=== PATIENT | female | born 1985 | race Caucasian/White ===

== ENCOUNTER 2016-10-04 21:28 | Emergency (ER) | payer SELFPAY ==
[~2016-10-04] VITALS: Ht 167.6 cm; Wt 87.0 kg
[2016-10-04 21:28] VITALS: Ht 167.6 cm; Wt 87.0 kg
[~2016-10-04 21:28] MED LIST: DICL75TA5 PO; NO ROUTINE MEDS
--- OUTSIDE RECORDS SUMMARY | 2016-10-04 21:32 | XMS REPORT ---
Author Author Sania Cotto Organization eClinicalWorks Address Unknown Phone Unavailable Care Team Providers Care Customer Agent Name Role Phone Sania Cotto CP Unavailable Allergies No Known Allergies Problems Problem Type Condition Code Onset Dates Condition Status Assessment Screening for iron deficiency anemia Z13.0 Active Assessment Screening for thyroid disorder Z13.29 Active Problem Asthma 493.90 Active Problem Allergic rhinitis due to other allergen 477.8 Active Problem Personal history of nicotine dependence Z87.891 Active Problem Personal history of tobacco use, presenting hazards to health V15.82 Active Assessment Overweight (BMI 25.0-29.9) E66.3 Active Problem Tobacco use disorder 305.1 Active Problem Generalized anxiety disorder 300.02 Active Medications Medication Code System Code Instructions Start Date End Date Status Dosage Phentermine HCl [facility] [address]-11 15 MG Orally Once a day Apr 04, 2016 May 04, 2016 1 capsule Procedures Procedure Coding System Code Date COMPREHENSIVE METABOLIC PANEL CPT-4 80306 Apr 04, 2016 T4 FREE CPT-4 38287 Apr 04, 2016 COMPLETE CBC W/AUTO DIFF WBC CPT-4 90118 Apr 04, 2016 T3 FREE CPT-4 27216 Apr 04, 2016 TSH CPT-4 81719 Apr 04, 2016 Results No Known Results Summary Purpose eClinicalWorks Submission
--- OUTSIDE RECORDS SUMMARY | 2016-10-04 21:32 | XMS REPORT ---
Author Author Sania Cotto Organization [employer] Address Unknown Phone Unavailable Care Team Providers Care Chief School Finance Officer Name Role Phone Sania Cotto CP Unavailable Allergies, Adverse Reactions, Alerts Substance Reaction Event Type N.K.D.A. Info Not Available Non Drug Allergy Problems Problem Type Condition Code Onset Dates Condition Status Problem Tobacco use disorder 305.1 Active Problem Generalized anxiety disorder 300.02 Active Problem Allergic rhinitis due to other allergen 477.8 Active Assessment Acute maxillary sinusitis 461.0 Active Problem Personal history of tobacco use, presenting hazards to health V15.82 Active Assessment Allergic rhinitis due to other allergen 477.8 Active Medications Medication Code System Code Instructions Start Date End Date Status Dosage Fluticasone Propionate [facility] [address]-40 50 MCG/ACT Nasally Once a day September 08, 2014 1 spray in each nostril Procedures Procedure Coding System Code Date OFFICE VISIT, EST-LOW COMPLEXITY (15 MIN.) CPT-4 98992 September 08, 2014 Vital Signs Date/Time: September 08, 2014 Height 67.5 in Weight 179.8 lbs Temperature 98.8 F Blood Pressure Diastolic 76 mm Hg Blood Pressure Systolic 114 mm Hg Cardiac Monitoring Heart Rate 84 /min BMI 27.74 Index Respiratory Rate 16 /min Results No Known Results Summary Purpose eClinicalWorks Submission
--- OUTSIDE RECORDS SUMMARY | 2016-10-04 21:33 | XMS REPORT ---
Author Author Sania Cotto [facility] eClinicalWorks Address Unknown Phone Unavailable Care Team Providers Care Student Ministries Director Name Role Phone Sania Cotto CP Unavailable Allergies No Known Allergies Problems Problem Type Condition Code Onset Dates Condition Status Problem Allergic rhinitis due to other allergen 477.8 Active Problem Tobacco use disorder 305.1 Active Problem Asthma 493.90 Active Problem Generalized anxiety disorder 300.02 Active Problem Personal history of tobacco use, presenting hazards to health V15.82 Active Medications No Known Medications Results No Known Results Summary Purpose eClinicalWorks Submission
--- OUTSIDE RECORDS SUMMARY | 2016-10-04 21:33 | XMS REPORT ---
Author Author Sania Cotto Organization [employer] Address Unknown Phone Unavailable Care Team Providers Care Sandal Parts Assembler Name Role Phone Sania Cotto CP Unavailable Allergies, Adverse Reactions, Alerts Substance Reaction Event Type N.K.D.A. 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 [address]-51 108 (90 Base) MCG/ACT Inhalation as directed November 23, 2014 1 to 2 puffs as needed every 6 hours for cough/wheezing/ shortness of breath Procedures Procedure Coding System Code Date OFFICE VISIT, EST-LOW COMPLEXITY (15 MIN.) CPT-4 86526 Jun 22, 2015 Vital Signs Date/Time: Jun 22, 2015 Height 67.5 in Weight 193.75 lbs Temperature 98.3 F Blood Pressure Diastolic 100 mm Hg Blood Pressure Systolic 130 mm Hg Cardiac Monitoring Heart Rate 88 /min BMI 29.89 Index Respiratory Rate 16 /min Results No Known Results Summary Purpose eClinicalWorks Submission
--- OUTSIDE RECORDS SUMMARY | 2016-10-04 21:33 | XMS REPORT ---
Author Author Sania Cotto [facility] eClinicalWorks Address Unknown Phone Unavailable Care Team Providers Care Cell Builder Name Role Phone Sania Cotto CP Unavailable [...]
--- OUTSIDE RECORDS SUMMARY | 2016-10-04 21:33 | XMS REPORT | Continuity of Care Document ---
Author Author [facility] Organization [facility] Address Unknown Phone Unavailable Care Team Providers Care Osteology Teacher Name Role Phone INFECTION, CONTROL Primary Care Physician [phone] Problems Medical Problems Problem Onset Date Status Pharyngitis Unknown Active Pharyngitis Unknown Active Medications Medication Dose Route Sig Days/Qty Instructions Order Date Discontinued Date Status Varenicline Tartrate 0.5 Mg PO DAILY 12/22/10 Active Norgestimate-Ethinyl Estradiol 1 Tab PO DAILY 12/22/10 Active Amoxicillin 500 Mg PO THREE TIMES A DAY For Pharyngitis 10 Days Active Social History Social History Problem Response Recorded Date/Time Smoking Status Current every day smoker 01/31/2014 11:00am Hx Substance Use No 01/31/2014 11:00am Hx Alcohol Use No 01/31/2014 11:00am Hospital Discharge Instructions No hospital discharge instructions. Plan of Care No plan of care. Functional Status Query Response Date Recorded Physical Hygiene Self January 31, 2014 11:00am Disabilities None January 31, 2014 11:00am Devices Used None January 31, 2014 11:00am Dressing Self January 31, 2014 11:00am Ambulation Self January 31, 2014 11:00am Diet Self January 31, 2014 11:00am Mental Status Alert Oriented January 31, 2014 11:00am Disabilities None January 31, 2014 11:00am Devices Used None January 31, 2014 11:00am Physical Hygiene Self January 31, 2014 11:00am Dressing Self January 31, 2014 11:00am Ambulation Self January 31, 2014 11:00am Diet Self January 31, 2014 11:00am Allergies, Adverse Reactions, Alerts Allergen Type Severity Reaction Status Last Updated No Known Allergies Allergy Unknown Active 10/18/09 Immunizations Name Given Type Hx Influenza Vaccination No Historical Hx Pneumococcal Vaccination No Historical Hx Influenza Vaccination No Historical Vital Signs Acute Vital Signs Vital Response Date/Time Temperature (Fahrenheit) 96.6 deg F (96.8 - 99.1) Temperature (Calculated Celsius) 35.95222 degrees C (36.0 - 37.3) Pulse Rate (adult) 77 bpm (60 - 100) Respiratory Rate 18 breaths/min (10 - 20) O2 Sat by Pulse Oximetry 97 % (90 - 100) Blood Pressure 126/75 mm Hg Blood Pressure 126/75 mm Hg Height 5 ft 6 in Weight 160 lb Body Mass Index 25.0 kg/m^2 Results Test Source Date Result Interp. Ref. Range Comments Alanine Aminotransferase (ALT/SGPT) August 28, 2011 12:05pm 20 U/L N 9 -52 Albumin August 28, 2011 12:05pm 4.9 G/DL N 3.5-5.0 Albumin/Globulin Ratio August 28, 2011 12:05pm 1.5 RATIO N 1.1-2.2 Alkaline Phosphatase August 28, 2011 12:05pm 83 U/L N 38-126 Anion Gap August 28, 2011 12:05pm 10 MEQ/L N 5-15 Aspartate Amino Transf (AST/SGOT) August 28, 2011 12:05pm 24 U/L N 14- 36 BUN/Creatinine Ratio August 28, 2011 12:05pm 14 RATIO N 6-26 Basophils # (Auto) August 28, 2011 12:05pm 0.0 T/MM3 N 0-0.2 Basophils (%) (Auto) August 28, 2011 12:05pm 0.2 % N 0-2 Blood Urea Nitrogen August 28, 2011 12:05pm 10.0 MG/DL N 7-17 Calcium Level August 28, 2011 12:05pm 9.3 MG/DL N 8.4-10.2 Calculated Osmolality August 28, 2011 12:05pm 275 MOSM/KG N 261-280 Carbon Dioxide Level August 28, 2011 12:05pm 30 MEQ/L N 22-30 Chloride Level August 28, 2011 12:05pm 104 MEQ/L N 98-107 Creatinine August 28, 2011 12:05pm 0.7 MG/DL N 0.7-1.2 Eosinophils # (Auto) August 28, 2011 12:05pm 0.0 T/MM3 N 0-0.5 Eosinophils (%) (Auto) August 28, 2011 12:05pm 0.5 % N 0-4 Globulin August 28, 2011 12:05pm 3.3 G/DL N 2.4-3.6 Glucose Level August 28, 2011 12:05pm 76 MG/DL N 65-110 Group A Streptococcus Screen January 31, 2014 11:15am Negative - Strep culture confirmation to follow Hematocrit August 28, 2011 12:05pm 46.0 % N 36-46 Hemoglobin August 28, 2011 12:05pm 15.3 GM/DL N 12-16 Hepatitis B Surface Ab Concentrat January 26, 2014 3:25pm Negative - Lymphocytes # (Auto) August 28, 2011 12:05pm 2.4 T/MM3 N 1-4.8 Lymphocytes (%) (Auto) August 28, 2011 12:05pm 40.2 % N 23-45 Mean Corpuscular Hemoglobin August 28, 2011 12:05pm 29.4 UUG N 26-34 Mean Corpuscular Hemoglobin Concent August 28, 2011 12:05pm 33.3 GM/DL N 31-37 Mean Corpuscular Volume August 28, 2011 12:05pm 88.3 UM3 N 80-100 Mean Platelet Volume August 28, 2011 12:05pm 11.7 UM3 N 9.4-12.4 Measles/Mumps/Rubella Immunity January 26, 2014 3:25pm - - . <0.91= Negative. 0.91 - 1.09=Equivocal . >1.09=Positive Positive results suggest response to immunization or prior exposure. Measles IgG performed at [facility], [address] [place] [id number] Advertising Editor Joss Kuhn MD Monocytes # (Auto) August 28, 2011 12:05pm 0.6 T/MM3 N 0-0.8 Monocytes (%) (Auto) August 28, 2011 12:05pm 10.4 % H 0-9.0 Mumps Virus IgG Antibody January 26, 2014 3:25pm Positive - Neutrophils # (Auto) August 28, 2011 12:05pm 2.9 T/MM3 N 1.8-7.7 Neutrophils (%) (Auto) August 28, 2011 12:05pm 48.7 % N 33-66 Platelet Count August 28, 2011 12:05pm 202 T/MM3 N 130-400 Potassium Level August 28, 2011 12:05pm 4.4 MEQ/L N 3.6-5 Prolactin October 17, 2007 12:36pm Send out - RDW Standard Deviation August 28, 2011 12:05pm 39.5 FL N 36.9-50.2 Red Blood Count August 28, 2011 12:05pm 5.21 M/MM3 H 4.00-5.20 Rubella Screen January 26, 2014 3:25pm Positive - Rubeola (Measles) IgG Antibody January 26, 2014 3:25pm Positive - Sodium Level August 28, 2011 12:05pm 144 MEQ/L N 134-144 Thyroid Stimulating Hormone (TSH) August 28, 2011 12:05pm 1.95 MIU/L N 0.47-4.68 Total Bilirubin August 28, 2011 12:05pm 0.50 MG/DL N 0.20-1.30 Total Protein August 28, 2011 12:05pm 8.2 G/DL N 6.3-8.2 Urine Bilirubin October 19, 2009 7:42am Negative - Has specimen been collected/obtained? Y Urine Blood October 19, 2009 7:42am Negative - Has specimen been collected/obtained? Y Urine Collection Type October 19, 2009 7:42am Voided - Has specimen been collected/obtained? Y Urine Color October 19, 2009 7:42am Yellow - Has specimen been collected/obtained? Y Urine Glucose (UA) October 19, 2009 7:42am Negative - Has specimen been collected/obtained? Y Urine Ketones October 19, 2009 7:42am Trace H - Has specimen been collected/obtained? Y Urine Leukocyte Esterase October 19, 2009 7:42am Negative - Has specimen been collected/obtained? Y Urine Nitrite October 19, 2009 7:42am Negative - Has specimen been collected/obtained? Y Urine Test December 23, 2010 10:30am Negative - Has specimen been collected/obtained? Y Urine Protein October 19, 2009 7:42am Negative - Has specimen been collected/obtained? Y Urine Specific [place] October 19, 2009 7:42am 1.025 - Has specimen been collected/obtained? Y Urine Turbidity October 19, 2009 7:42am Clear - Has specimen been collected/obtained? Y Urine Urobilinogen October 19, 2009 7:42am Normal EU/DL - Has specimen been collected/obtained? Y Urine pH October 19, 2009 7:42am 6.0 - Has specimen been collected/ obtained? Y Varicella-Zoster IgG Antibody January 26, 2014 3:25pm Positive - White Blood Count August 28, 2011 12:05pm 5.9 T/MM3 N 4.5-11.0 Lab Scanned Report January 27, 2014 11:04am [facility] [id number] - Glomerular Filtration Rate Calc August 28, 2011 12:05pm 100 - Immature Granulocyte # (Auto) August 28, 2011 12:05pm 0.00 T/MM3 N 0.00-0.03 Immature Granulocyte % (Auto) August 28, 2011 12:05pm 0.0 % N 0.0-0.5 Urine Microscopic Not Indicated October 19, 2009 7:42am Not indicated - Has specimen been collected/obtained? Y Mumps IgG Antibody Index January 26, 2014 3:25pm 4.46 OD Ratio - Mumps IgG performed at [facility], [address] [place], [place] [address]Medical Director Joss Kuhn MD Rubeola (Measles) IgG Ab Index January 26, 2014 3:25pm 2.30 OD Ratio - Measles IgG performed at [facility], [address] [place], [place] [address]Medical Director Joss Kuhn MD Varicella-Zoster IgG Ab Index Value January 26, 2014 3:25pm 1.47 OD Ratio - Varicella Zoster IGG performed at [facility], [address] [place] [address] Advertising Editor Joss Kuhn MD Gram Stain Vagina August 25, 2010 4:00pm Procedures No known history of procedures. Encounters Encounter Location Date/Time Departed Emergency Room [facility] 01/31/14 10:55am Recent Diagnosis
--- OUTSIDE RECORDS SUMMARY | 2016-10-04 21:33 | XMS REPORT ---
Author Author Timmy Heath Organization eClinicalWorks Address Unknown Phone Unavailable Care Team Providers Care Freight Agent Name Role Phone Timmy Heath CP Unavailable Allergies, Adverse Reactions, Alerts Substance Reaction Event Type N.K.D.A. Info Not Available Non Drug Allergy Problems Problem Type Condition Code Onset Dates Condition Status Assessment Asthma 493.90 Active Assessment Unspecified otitis media 382.9 Active Assessment Tobacco use disorder 305.1 Active Assessment Impacted cerumen 380.4 Active Assessment Dizziness and giddiness 780.4 Active Problem Allergic rhinitis due to other allergen 477.8 Active Problem Tobacco use disorder 305.1 Active Problem Asthma 493.90 Active Assessment Acute bronchitis 466.0 Active Assessment Other acute sinusitis 461.8 Active Problem Generalized anxiety disorder 300.02 Active Problem Personal history of tobacco use, presenting hazards to health V15.82 Active Medications Medication Code System Code Instructions Start Date End Date Status Dosage Tessalon Perles [facility] [address]-43 100 MG Orally Three times a day as needed for cough and congestion November 23, 2014 December 21, 2014 1 capsule as needed Ventolin HFA [facility] [address]-05 108 (90 Base) MCG/ACT Inhalation as directed November 23, 2014 1 to 2 puffs as needed every 6 hours for cough/wheezing/ shortness of breath Amoxicillin [facility] [address]-09 875 MG Orally Twice a day November 23, 2014 December 03, [address] [facility] [address]-14 10 MG Orally 4 tabs daily X4 days then 3 tabs daily X3 days then 2 tabs daily X3 days then 1 tab daily X3 days, then stop November 23, 2014 December 05, 2014 1 tablet with food Procedures Procedure Coding System Code Date OFFICE VISIT, EST-MOD. COMPLEXITY (25 MIN) CPT-4 62087 November 23, 2014 IH RAPID MONO CPT-4 29825 November 23, 2014 MONOSPOT CPT-4 14387 November 23, 2014 IH CMP CPT-4 36167 November 23, 2014 Vital Signs Date/Time: November 23, 2014 Height 67.5 in Weight 181.8 lbs Temperature 98.4 F Blood Pressure Diastolic 86 mm Hg Blood Pressure Systolic 110 mm Hg Cardiac Monitoring Heart Rate 94 /min BMI 28.05 Index Oximetry 97 % Respiratory Rate 16 /min Results No Known Results Summary Purpose eClinicalWorks Submission
--- OUTSIDE RECORDS SUMMARY | 2016-10-04 21:33 | XMS REPORT ---
Author Author Sania Cotto Organization eClinicalWorks Address Unknown Phone Unavailable Care Team Providers Care Groover Runner Name Role Phone Sania Cotto CP Unavailable Allergies, Adverse Reactions, Alerts Substance Reaction Event Type N.K.D.A. Info Not Available Non Drug Allergy Problems Problem Type Condition Code Onset Dates Condition Status Problem Generalized anxiety disorder 300.02 Active Problem Personal history of tobacco use, presenting hazards to health V15.82 Active Problem Tobacco use disorder 305.1 Active Assessment Routine gynecological examination V72.31 Active Medications No Known Medications Procedures Procedure Coding System Code Date WELL ADULT, EST (18-39) CPT-4 06089 September 07, 2014 Vital Signs Date/Time: September 07, 2014 Height 67.5 in Weight 179 lbs Temperature 98.5 F Blood Pressure Diastolic 76 mm Hg Blood Pressure Systolic 114 mm Hg Cardiac Monitoring Heart Rate 84 /min BMI 27.62 Index Respiratory Rate 16 /min Results No Known Results Summary Purpose eClinicalWorks Submission
--- OUTSIDE RECORDS SUMMARY | 2016-10-04 21:33 | XMS REPORT ---
Author Author Timmy Heath Organization eClinicalWorks Address Unknown Phone Unavailable Care Team Providers Care Engineering Operator Name Role Phone Timmy Heath CP Unavailable Allergies No Known Allergies Problems Problem Type Condition Code Onset Dates Condition Status Problem Allergic rhinitis due to other allergen 477.8 Active Problem Tobacco use disorder 305.1 Active Problem Asthma 493.90 Active Assessment Acute bronchitis 466.0 Active Assessment Dizziness and giddiness 780.4 Active Problem Generalized anxiety disorder 300.02 Active Problem Personal history of tobacco use, presenting hazards to health V15.82 Active Medications Medication Code System Code Instructions Start Date End Date Status Dosage PredniSONE [facility] [address]-98 10 MG Orally 4 tabs daily X4 days then 3 tabs daily X3 days then 2 tabs daily X3 days then 1 tab daily X3 days, then stop November 23, 2014 December 05, 2014 1 tablet with food Amoxicillin [facility] [address]-37 875 MG Orally Twice a day November 23, 2014 December 03, 2014 1 tablet Tessalon Perles [facility] [address]-37 100 MG Orally Three times a day as needed for cough and congestion November 23, 2014 December 21, 2014 1 capsule as needed Ventolin HFA [facility] [address]-11 108 (90 Base) MCG/ACT Inhalation as directed November 23, 2014 1 to 2 puffs as needed every 6 hours for cough/wheezing/ shortness of breath Procedures Procedure Coding System Code Date MAGNESIUM CPT-4 53821 November 23, 2014 SCREEN SERUM CPT-4 54918 November 23, 2014 COMPLETE CBC W/AUTO DIFF WBC CPT-4 12766 November 23, 2014 TSH CPT-4 26201 November 23, 2014 Results No Known Results Summary Purpose eClinicalWorks Submission
--- OUTSIDE RECORDS SUMMARY | 2016-10-04 21:33 | XMS REPORT ---
Author Author Sania Cotto eClinicalWorks Address Unknown Phone Unavailable Care Team Providers Care Pet Care Worker Name Role Phone Sania Cotto CP Unavailable Allergies, Adverse Reactions, Alerts Substance Reaction Event Type N.K.D.A. Info Not Available Non Drug Allergy Problems Problem Type Condition Code Onset Dates Condition Status Assessment Screening for iron deficiency anemia Z13.0 Active Assessment Personal history of nicotine dependence Z87.891 Active Assessment Screening for thyroid disorder Z13.29 [...] Date End Date Status Dosage Phentermine HCl [facility] [address]-13 15 MG Orally Once a day Apr 04, 2016 May 04, 2016 1 capsule Procedures Procedure Coding System Code Date OFFICE VISIT, EST-LOW COMPLEXITY (15 MIN.) CPT-4 73422 Apr 04, 2016 Vital Signs Date/Time: Apr 04, 2016 Temperature 99.6 F Height 67.5 in Weight 185.12 lbs Blood Pressure Diastolic 80 mm Hg Blood Pressure Systolic 124 mm Hg Cardiac Monitoring Heart Rate 80 /min BMI 28.56 Index Oximetry 98 % Results Name Result Date Reference Range Unit Abnormality Flag Electrocardiogram (EKG) Summary Purpose eClinicalWorks Submission
--- OUTSIDE RECORDS SUMMARY | 2016-10-04 22:17 | XMS REPORT | Continuity of Care Document ---
Author Author [facility] Organization [facility] Address Unknown Phone Unavailable Care Team Providers Care Retail Store Assistant Name Role Phone INFECTION, CONTROL Primary Care Physician [phone] Problems Medical Problems Problem Onset Date Status [...] F (96.8 - 99.1) Temperature (Calculated Celsius) 35.63954 degrees C (36.0 - 37.3) Pulse Rate [...] or prior exposure. Measles IgG performed at [facility], [address] [place] [id number] Arcade Games Mechanic Joss Kuhn MD Monocytes # (Auto) August [...] Has specimen been collected/obtained? Y Urine Specific [place] October 19, 2009 7:42am 1.025 - Has [...] Report January 27, 2014 11:04am REFERENCE LAB [id number] - Glomerular Filtration Rate Calc August 28, [...] OD Ratio - Mumps IgG performed at [facility], [address] [place], [place] [address]Medical Director Joss Kuhn MD Rubeola (Measles) IgG Ab Index January 26, 2014 3:25pm 2.30 OD Ratio - Measles IgG performed at [facility], [address] [place], [place] [address]Medical Director Joss Kuhn MD Varicella-Zoster IgG Ab Index Value January 26, 2014 3:25pm 1.47 OD Ratio - Varicella Zoster IGG performed at [facility], [address] [place] [address] Arcade Games Mechanic Joss Kuhn MD Gram Stain Vagina August 25, 2010 4:00pm Procedures No known history of procedures. Encounters Encounter Location Date/Time Departed Emergency Room [facility] 01/31/14 10:55am Recent Diagnosis
--- NOTE | 2016-10-04 22:27 | ERPDOC ---
Departure Disposition Decision Date: Oct 05, 2016 Disposition Decision Time: 01:12 Disposition: 01 DISCHARGED HOME, SELF-CARE Impression Impression Impression: Primary Impression: Threatened miscarriage in early Severity: Moderate Condition: Improved Seen By: Physician only Referrals: OMID VICENTE APRN (PCP) RDASTRIDINGA Barger APRN (Family) Patient Instructions: Threatened Miscarriage (ED) Problems/Meds/Labs Reviewed?: Yes Medications reviewed and manag: Yes Additional Instructions: Use [place] one tablet up to 4 times daily as needed for pain Call Dr. Howe's office first thing in the morning for recheck tomorrow or Sunday. Follow up care ordered?: Yes Mental Status: Alert, Oriented HPI - Female General Chief Complaint: Related Problems Stated Complaint: 5 WEEKS CRAMPING Time Seen by Provider: 22:11 Source: patient Exam Limitations: no limitations HPI - Female Initial Comments Patient presents with low abdominal cramping and vaginal spotting. Patient is approximately 5 and half weeks after having bilateral tubal ligation reversal with Dr. Talley. Patient's last quantitative hCG, 3 days ago, was around 800. She was fearful because of the cramping that she may have an ectopic . She is scheduled for an in office sono on October 17. Occurred At: home Onset: Rapid Duration: 6-12 hrs Severity/Quality: cramping Location: RLQ, LLQ Radiation: none Associated Symptoms: DENIES: abdominal pain, diaphoresis, dysuria, fever/chills , loss of bladder control, lower back pain, lumps, mass, nausea/vomiting, nocturia, polyuria, swelling, syncope, urinary frequency Hx of Similar Symptoms: No Is Pt now?: Yes Hx Last Menstrual Period: 08/27/16 : 3 Para: 2 Allergies: Coded Allergies: No Known Allergies (Verified , 10/03/15) Past History Past Medical History Hx Echocardiogram: No Surgical History Reproductive/: other (tubal ligation reversal), tubal ligation Vaccines Hx Influenza Vaccination: No Hx Pneumococcal Vaccination: No Social History Smoking Status: Never smoker Does patient use chewing tobac: No Second Hand Exposure: No Substance Use Type: does not use Alcohol Intake: none Sexuality: male partner Review of Systems Constitutional Constitutional: DENIES: appetite decrease, appetite increase, chills, dizziness , fever, weakness ENMT Ears: DENIES: pain Hearing: DENIES: hearing loss, tinnitus Balance: DENIES: vertigo Mouth/Throat: DENIES: change in swallowing, change in voice, hoarsness, painful swallowing, sore throat Cardiovascular Cardiac: DENIES: chest pain, dyspnea on exertion Rhythm/Rate: DENIES: irregular beat, palpitations, tachycardia Vascular: DENIES: pedal edema Pulmonary Respiratory: DENIES: cough, dyspnea, pleuritic chest pain GI Upper Abdomen: DENIES: dysphagia, heartburn/indigestion, nausea, pain, vomiting Lower Abdomen: DENIES: blood in stool, constipation, diarrhea, pain General: DENIES: burning, dysuria, frequency, pain, urgency Comments Abdominal cramping with spotting Musculoskeletal General: DENIES: cramps, joint pain, joint swelling, pain, weakness Integumentary Skin: DENIES: rash, sores Neurological General: DENIES: headache, numbness, tingling, vertigo, weakness Psychiatric Psychiatric: DENIES: anxiety, depression, nervousness Physical Exam General General Nourishment: well nourished, well developed, appears stated age General Body Habitus: well groomed Vitals and Pain First Documented Vital Signs Date Time Temp Pulse Resp B/P Pulse Ox O2 Delivery O2 Flow Rate FiO2 10/04/16 21:28 98.0 87 20 125/70 100 Room Air Weight: Kilograms: 87.000 Height (feet): 5 Height (inches): 6.00 Triage Pain Scale: RN VS reviewed by Provider: Yes Normal Exams: Head: Normocephalic w/o trauma Eyes: Pupils are PERRLA w/ EOMI, No scleral icterus, irritation, or foreign bodies noted ENMT: No facial trauma, nasal exudates, pharyngeal erythema, or exudates are noted Neck: Full range of motion, without adenopathy, JVD, bruits or thyromegaly Chest/Resp: Clear all saul, with good airflow, and symmetry bilaterally CV: Regular rate and rhythm, without murmur or gallop, Pulses 2+ all extremities, capillary refill, <2 seconds all ext., no pedal edema noted Lymphatic: No lymphadenopathy, or lymphedema noted Musculoskeletal: No tenderness, or deformity noted, good range of motion, all extremities Integumentary: No rashes, hives, or bruising noted, hair and nails, without abnormality Neurologic: Patient is alert, and oriented, cranial nerves, motor/sensory/ cerebellar, exams w/o gross deficits, to observation Psychiatric: Patient exhibits, appropriate attention, emotion and affect Abdomen (brief) Abdominal Brief: FOUND: bowel normo active x4, soft, tender (moderate low abdominal tenderness, no rebounding no guarding), NOT FOUND: distended, hepatosplenomegaly Progress Results/Orders Orders Procedure Category Date Status Time Hcg-Quantitative LAB 10/04/16 Complete Cbc W/Auto LAB 10/04/16 Complete Diff-Reflex Manual Normal Saline (Normal PHA 10/04/16 Complete Saline Iv) 22:30 Hydrocodone/Acetaminophen PHA 10/04/16 Complete ([place] 5/325) 22:30 Diphenhydramine PHA 10/04/16 Complete (Benadryl) 22:30 Us Ob <14 Wks With US 10/04/16 Logged Transvag Lab Results Laboratory Tests Test 10/04/16 22:34 White Blood Count 11.4T/MM3 Red Blood Count 4.39M/MM3 Hemoglobin 13.2GM/DL Hematocrit 38.3% Mean Corpuscular Volume 87.2UM3 Mean Corpuscular Hemoglobin 30.1UUG Mean Corpuscular Hemoglobin Concent 34.5GM/DL RDW Standard Deviation 38.1FL Platelet Count 181T/MM3 Mean Platelet Volume 10.9UM3 Immature Granulocyte % (Auto) 0.2% Neutrophils (%) (Auto) 67.4% Lymphocytes (%) (Auto) 22.8% Monocytes (%) (Auto) 8.4% Eosinophils (%) (Auto) 1.1% Basophils (%) (Auto) 0.1% Absolute Immature Granulocyte (auto 0.02T/MM3 Absolute Neutrophils (auto) 7.7T/MM3 Absolute Lymphocytes (auto) 2.6T/MM3 Absolute Monocytes (auto) 1.0T/MM3 Absolute Eosinophils (auto) 0.1T/MM3 Absolute Basophils (auto) 0.0T/MM3 Beta HCG, Quantitative 1749.9mIU/mL Medications Current ED Medications Sodium Chloride (Normal Saline IV) 1,000 ml @ 0 mls/hr Q0M ONCE IV Last administered on 10/04/16t 22:34; Start 10/04/16 at 22:30; Stop 10/04/16 at 22:31 ; Status DC Acetaminophen/ Hydrocodone Bitart ([place] 5/325) 1 tab O ONCE PO Last administered on 10/04/16 22:34; Start 10/04/16 at 22:30; Stop 10/04/16 at 22:31 ; Status DC Diphenhydramine HCl (Benadryl) 50 mg O ONCE IV Last administered on 10/04/16 22:34; Start 10/04/16 at 22:30; Stop 10/04/16 at 22:31; Status DC Progress Progress Quantitative hCG, borderline at 1749 OB sono with transvaginal - essentially equivocal, we were unable to identify an intrauterine , however the patient has no visible extrauterine abnormalities. Patient given [place] pack, instructions to call Dr. Howe's office first thing in the morning for recheck tomorrow or Sunday. FREDERICK STODDARD MD Oct 04, 2016 22:27
[2016-10-04] MEDS ORDERED: HYDROCODONE/APAP 5 mg/325 mg TABLET PO ONE (22:30)
[2016-10-04] MEDS ORDERED: DiphenhydrAMINE 50 MG/ML INJECTION IV ONE (22:30)
[2016-10-04] MEDS ORDERED: NORMAL SALINE 1,000 ML IV ONE (22:30)
[2016-10-04 22:40] LABS: BASOPHILS % (AUTO) 0.1 % (0-2); EOSINOPHILS # (AUTO) 0.1 T/MM3 (0-0.5); EOSINOPHILS % (AUTO) 1.1 % (0-4); HCT - HEMATOCRIT 38.3 % (36-46); HGB - HEMOGLOBIN 13.2 GM/DL (12-16); IMMATURE GRANULOCYTE # (AUTO) 0.02 T/MM3 (0.00-0.03); IMMATURE GRANULOCYTE % (AUTO) 0.2 % (0.0-0.5); LYMPHOCYTES # (AUTO) 2.6 T/MM3 (1-4.8); LYMPHOCYTES % (AUTO) 22.8 % (23-45); MEAN CORPUSCULAR HGB 30.1 UUG (26-34); MEAN CORPUSCULAR HGB CONC(MCHC 34.5 GM/DL (31-37); MEAN CORPUSCULAR VOLUME 87.2 UM3 (80-100); MEAN PLATELET VOLUME 10.9 UM3 (9.4-12.4); MONOCYTES % (AUTO) 8.4 % (0-9.0); NEUTROPHILS #(AUTO)-ABSOLUTE 7.7 T/MM3 (1.8-7.7); NEUTROPHILS % (AUTO) 67.4 % (33-66); RED BLOOD COUNT 4.39 M/MM3 (4.00-5.20); WBC - WHITE BLOOD COUNT 11.4 T/MM3 (4.5-11.0)
--- NOTE | 2016-10-04 23:14 | NUR ---
[employer]PRESENT[employer]IVE [email or web address] TE[employer] IS CALLED IN FOR NEW US ORDER
--- NOTE | 2016-10-05 00:41 | NUR ---
ULTRASOUND IS COMPLETE
[2016-10-05] MEDS ORDERED: HYDROCODONE/APAP 5/325 (PrePack) SENT HOME ONE (01:15)
[2016-10-05 01:37] VITALS: BP 109/53; PULSE 76; RESP 18; TEMP 98; O2SAT 96
--- NOTE | 2016-10-05 01:37 | NUR ---
DEPART PT IS GIVEN DISMISSAL INSTRUCTIONS WITH VERBAL UNDERSTANDING. PT IS GIVEN PREPACK. PT IS AMBULATORY TO ED EXIT
--- NOTE | 2016-10-05 08:10 | DI ---
Indication: ITS.REASON right lower quadrant pain, PROCEDURE: US OB <14 WKS WITH TRANSVAG: Encounter: Initial Age by LMP is uncertain. Comparison: None PROCEDURE: US OB <14 WKS WITH TRANSVAG: Technique: Transabdominal and transvaginal pelvic sonographic imaging was performed. Findings: Imaging demonstrates no definitive intrauterine although there is some endometrial thickening at 11 mm. No endometrial fluid. Both ovaries were identified. Possible corpus luteum versus cyst on the right. The left measures 2.6 x 1.9 x 2.3 cm, and the right 3.4 x 2.7 x 3.2 cm. No abnormal adnexal mass. Small amount of free fluid. Impression: No definite intrauterine . The patient's quantitative beta hCG level is below the discriminatory threshold and as such multiple possibilities exist including early normal , early abnormal , spontaneous and ectopic . Recommend serial beta hCG measurements and follow-up ultrasound in 5-7 days. There is a preliminary report by [employer]. .
== END 2016-10-05 01:37 | disposition home or self-care (01) ==
LOC: ED 21:28
DX: O20.0 Threatened abortion (principal); Z3A.01 Less than 8 weeks gestation of pregnancy
CPT/HCPCS: 36415; 84702; 85025